=== PATIENT | female | born 1935 | race Caucasian/White ===

== ENCOUNTER 2023-02-01 14:33 | Inpatient (IN) | payer MEDICARE ==
[2023-02-01 16:36] VITALS: BMI 19.0
[2023-02-01] MEDS ORDERED: Ondansetron PF 4 MG/2 ML Vial IVP PRN (16:38)
[2023-02-01] MEDS ORDERED: Ondansetron ODT 4 MG TAB PO PRN (16:38)
[2023-02-01] MEDS ORDERED: Sodium Chloride 0.9% 1,000 ML IV SCH (16:45)
[2023-02-01] MEDS ORDERED: Electrolyte Replacement Protocol 1 EACH FS SCH (16:45)
[2023-02-01] MEDS ORDERED: Communication Order-Pharmacy FS ONE (16:45)
[2023-02-01] MEDS ORDERED: Nitroglycerin 0.4 MG TAB (25 Tab Bottle) SL PRN (16:51)
[2023-02-01] MEDS ORDERED: Mag-Al 1200 mg/1200 mg/30 ML UDCUP PO PRN (17:14)
[2023-02-01 18:12] LABS: SARS-CoV-2 NAA Rapid Test DETECTED (NotDetected)
[2023-02-01 18:19] LABS: CKMB 2.2 ng/mL (0-6.6)
[2023-02-01] MEDS: Pantoprazole 40 MG VIAL IVP SCH (18:45)
[2023-02-01] MEDS ORDERED: Benzonatate 100 MG CAP PO PRN (19:03)
[2023-02-01] MEDS ORDERED: Ventolin HFA Inhaler 60 PUFF INHALER INH PRN (19:10)
[2023-02-01] MEDS ORDERED: Lisinopril 5 MG TAB PO SCH (20:00)
[2023-02-01] MEDS: Atorvastatin Calcium 40 MG TAB PO SCH (20:32)
[2023-02-02 06:08] LABS: Cardiac Risk 3.4 (Less than 4.5); Cholesterol 173 mg/dl (< 200 Desired); HDL Cholesterol 51 mg/dL (>60 Neg Risk); LDL Cholesterol, Calculated 108 mg/dL; Magnesium 1.8 mg/dL (1.6-2.6); Triglycerides 71 mg/dL (Less than 150)
[2023-02-02 06:11] LABS: #Eosinphils 0.1 10x3/uL (0.0-0.5); #Monocytes 0.5 10x3/uL (0.0-1.1); #Neutrophils 2.8 10x3/uL (1.5-8.4); %Basophils 0.5 % (0.0-2.0); %Eosinophils 1.6 % (0.0-6.0); %Lymphocytes 23.5 % (18.0-47.0); %Monocytes 10.9 % (0.0-10.0); Hemoglobin 12.9 g/dL (12.0-15.5); Mean Corpuscular HGB CONC 33.9 g/dL (32.0-36.0); Mean Corpuscular Hemoglobin 29.2 pg (27.0-33.0); Mean Corpuscular Volume 86.2 fl (81.6-98.3); Mean Platelet Volume 9.7 fl (7.4-10.4); Platelet Count 227 10x3/uL (150-450); RBC Distribution Width 13.1 % (11.5-14.5); Red Blood Cell (RBC) Count 4.42 10x6/uL (3.90-5.03); White Blood Cell (WBC) Count 4.4 10x3/uL (3.5-10.5)
[2023-02-02 08:00] LABS: CRP (Inflammatory) Less than 0.50 mg/dL (= or < 0.5)
[2023-02-02] MEDS ORDERED: Magnesium 2 GM/50 ML(in water) 2 GM in Premix Bag 1 BAG IVPB SCH ×2 (08:00→09:00)
[2023-02-02] MEDS ORDERED: Pantoprazole 40 MG VIAL IVP SCH (09:00)
[2023-02-02] MEDS: Pantoprazole 40 MG VIAL IVP SCH (10:20)
[2023-02-02] MEDS: Lisinopril 10 MG TAB PO SCH (10:21)
[2023-02-02 12:48] LABS: Hemoglobin A1c 5.8 % (4.0-6.0)
[2023-02-02 16:09] LABS: Campy jejuni + coli by PCR Negative (Negative); STEC Shiga Toxin 1+2 Negative (Negative); Salmonella spp. by PCR Negative (Negative); Shigella spp + EIEC by PCR Negative (Negative)
[2023-02-02 17:04] LABS: Anion Gap 16 mmol/L (10-20); BUN (Urea Nitrogen) 6 mg/dL (9.8-20.1); Calc. Creatinine Clearance 41 mL/min (70-130); Calcium 8.8 mg/dL (7.8-10.44); Carbon Dioxide 22 mmol/L (23-31); Chloride 105 mmol/L (98-107); Estimated GFR 76; Glucose 77 mg/dL (83-110); Potassium 3.8 mmol/L (3.5-5.1); Sodium 139 mmol/L (136-145)
[2023-02-02 18:32] LABS: Bilirubin Neg (Negative); Blood, Urine Negative (Negative); Clarity Clear (Clear); Glucose, Urine (Dipstick) Normal (Negative); Ketone, Urine 15 mg/dL (Negative); Leukocyte Negative (Negative); Nitrite Negative (Negative); Protein, Urine (Dipstick) Negative (Neg-Trace); Specific Gravity, Urine 1.015 (1.005-1.030); Urobilinogen Normal mg/dL (Less than 2)
[2023-02-02] MEDS ORDERED: Mirtazapine 15 MG Soltab PO SCH (21:00)
[2023-02-02] MEDS: Atorvastatin Calcium 40 MG TAB PO SCH ×2 (21:28→21:39)
[2023-02-03] MEDS ORDERED: Levothyroxine Sodium 125 MCG TAB PO SCH (06:00)
[2023-02-03 06:18] LABS: Hemoglobin 13.2 g/dL (12.0-15.5); Mean Corpuscular HGB CONC 33.6 g/dL (32.0-36.0); Mean Corpuscular Volume 86.4 fl (81.6-98.3); Mean Platelet Volume 9.6 fl (7.4-10.4); Platelet Count 235 10x3/uL (150-450); RBC Distribution Width 13.1 % (11.5-14.5); Red Blood Cell (RBC) Count 4.55 10x6/uL (3.90-5.03); White Blood Cell (WBC) Count 4.9 10x3/uL (3.5-10.5)
[2023-02-03 06:24] LABS: Phosphorus 2.9 mg/dL (2.3-4.7)
[2023-02-03 06:25] LABS: Anion Gap 12 mmol/L (10-20); BUN (Urea Nitrogen) 8 mg/dL (9.8-20.1); Calc. Creatinine Clearance 40 mL/min (70-130); Carbon Dioxide 28 mmol/L (23-31); Chloride 105 mmol/L (98-107); Estimated GFR 73; Glucose 87 mg/dL (83-110); Magnesium 2.1 mg/dL (1.6-2.6); Potassium 4.3 mmol/L (3.5-5.1); Sodium 141 mmol/L (136-145)
[2023-02-03 06:26] LABS: MDiff Complete? YES
[2023-02-03] MEDS: Lisinopril 10 MG TAB PO SCH (08:18)
[2023-02-03 08:24] LABS: Eosinophils 4 % (0-10); Lymphocytes 25 % (21-51); Monocytes 12 % (0-10); Neutrophil 58 % (42-75)
[2023-02-03 08:26] LABS: Platelet Morphology Comment Appears Adequate
[2023-02-03 08:27] LABS: RBC Morphology Normal
[2023-02-03] MEDS ORDERED: Polyethylene Glycol 3350 17 GM Packet PO PRN (08:28)
[2023-02-03] MEDS ORDERED: Docusate 100 MG CAP PO PRN (08:28)
[2023-02-03] MEDS ORDERED: Hydrochlorothiazide 25 MG TAB PO SCH (09:00)
[2023-02-03] MEDS ORDERED: Aspirin 81 mg Enteric Coated Tablet PO SCH (09:00)
[2023-02-03 12:43] VITALS: BP 127/65; TEMP 97.8
== END 2023-02-03 14:38 | disposition home health service (06) | DRG 177 ==
LOC: CSHTELE 14:33
PROVIDERS: ADMIT Internal Medicine; ATTEND Internal Medicine
PROC: 8E0ZXY6 Isolation (ICD-10-PCS; principal; 2023-02-01)
DX: U07.1 COVID-19 (principal); I21.A1 Myocardial infarction type 2; E86.0 Dehydration; I10 Essential (primary) hypertension; F41.9 Anxiety disorder, unspecified; I08.0 Rheumatic disorders of both mitral and aortic valves; E03.9 Hypothyroidism, unspecified; I49.5 Sick sinus syndrome; Z95.0 Presence of cardiac pacemaker; Z85.3 Personal history of malignant neoplasm of breast; Z88.1 Allergy status to other antibiotic agents; Z88.8 Allergy status to other drugs, medicaments and biological substances; Z88.5 Allergy status to narcotic agent; Z90.710 Acquired absence of both cervix and uterus; Z98.890 Other specified postprocedural states
CPT/HCPCS: 36415; 80048; 80061; 81003; 82553; 82565; 83036; 83735; 83880; 84100; 84443; 85025; 86140; 87324; 87449; 87505; 87633; 93005; 93010; 93306; 94760; C9113; J1650; J3475; J7050; Q0162; U0002